=== PATIENT | male | born 1975 | race Caucasian/White ===

== ENCOUNTER 2023-06-25 14:11 | Outpatient (CLI) | payer MEDICAID, OTHER ==
[~2023-06-25 14:11] MED LIST: CLIN-214 PO
== END 2023-06-25 23:59 | disposition home or self-care (01) ==
LOC: RAD 14:11
PROVIDERS: ATTEND Physician Assistant
DX: F11.20 Opioid dependence, uncomplicated (principal)
CPT/HCPCS: 93005

== ENCOUNTER 2025-04-02 13:23 | Inpatient (IN) | payer MEDICAID, OTHER ==
[~2025-04-02] VITALS: Ht 180.3 cm; Wt 79.5 kg
[2025-04-02 13:53] LABS: MEAN PLATELET VOLUME 8.1 FL (7.4-10.4); RED CELL DISTRIBUTION WIDTH 15.0 % (11.5-14.5)
[2025-04-02 14:04] LABS: CREATININE 1.29 MG/DL (0.60-1.10); TOTAL CARBON DIOXIDE 25.8 MMOL/L (24-32); eCRCL 72 ML/MIN; eGFR 59 ML/MIN
[2025-04-02 14:07] LABS: LEUKOCYTE ESTERASE ,URINE NEGATIVE (Neg); NITRITES, URINE NEGATIVE (Neg); OCCULT BLOOD,URINE NEGATIVE (Neg)
[2025-04-02 14:08] LABS: UA COLLECTION TYPE CLN CATCH MIDSTREAM
--- NOTE | 2025-04-02 15:36 | Physician Documentation ---
History of Present Illness ~ Chief Complaint: Abdominal Pain w/vomiting Stated Complaint: MED CLEARANCE Time Seen by MD: 15:25 Source: patient Mode of Arrival: Police Exam Limitations: no limitations HPI 50-year-old male with chronic umbilical hernia for over a year is concerned that it is large and he require surgery. Patient states that he has had pain when standing up as well as difficulty with bowel movements because of the hernia. Patient also states that he vomits after every meal and just his last episode of emesis he had streaks of blood in his vomit. No fevers or other associated events. Medication Reconciliation Allergies: Coded Allergies: No Known Allergies (Unverified , 09/28/16) Scheduled Clindamycin HCl (Clindamycin HCl CAPSULE), 3 CAP PO TID Past Medical History Past Medical History: No Pertinent History Past Surgical History: no surgical history Drug Use: none Lives In: Home Occupation: employed Review of Systems All Other Systems at this time: Reviewed and Negative Gastrointestinal: Reports: see HPI Physical Exam Vital Signs: RN Vital Signs have been reviewed: Yes, Temperature: 99.1, Source: Oral, Heart Rate: 95, Respiratory Rate: 20, BP: 166/105, Pulse Oximetry: 98, Weight: 79.550 Oxygen Flow Rate: 0 General Appearance: alert, WD/WN, no apparent distress Neck: normal inspection Respiratory: lungs clear, normal breath sounds, no respiratory distress Chest: no accessory muscle use, chest non-tender Gastrointestinal: bowels sounds present, tenderness Gastrointestinal Large umbilical hernia soft and reducible, tender to the left lower quadrant Hernia: reducible hernia, hernia tender Extremities: normal range of motion Neurologic: oriented x4 Psychiatric: normal mood/affect Skin: normal color, warm/dry Progress Results/Orders Results/Orders Orders - CAROLYN WEI TRANSITION MGR RN Ct Abdomen Pelvis (04/02/25 15:29) Observation Status Start (04/02/25 15:37) Completed Orders - CAROLYN WEI TRANSITION MGR RN Ct Abdomen Pelvis (04/02/25 15:29) Normal Saline 1000ml (0.9% Sodium Chlori (04/02/25 15:40) Ketorolac Trometh 30mg/Ml Vial (Toradol (04/02/25 15:40) Ondansetron Inj. (Zofran 4mg/2ml Vial) (04/02/25 15:40) Medications Received in ER Medications (Trade) Dose Ordered Sig/Janice Route PRN Reason Start Time Stop Time Status Last Admin Dose Admin (0.9% sodium chloride (NS) 1000ml IV soln) 1,000 ml ONCE ONCE IVB 04/02/25 15:40 04/02/25 15:41 DC 04/02/25 16:02 1,000 ML (Toradol inj. 30mg/ml) 30 mg ONCE ONCE IV 04/02/25 15:40 04/02/25 15:41 DC 04/02/25 16:01 30 MG (Zofran 4mg/2ml vial) 4 mg ONCE ONCE IV 04/02/25 15:40 04/02/25 15:41 DC 04/02/25 16:01 4 MG Vital Signs 04/02/25 04/02/25 04/02/25 04/02/25 13:32 13:34 14:08 14:59 Temp 99.1 Pulse 114 96 95 Resp 16 16 18 20 B/P (MAP) 169/125 161/107 (125) 166/105 (125) Pulse Ox 99 98 98 O2 Flow Rate 0 0 0 04/02/25 04/02/25 16:05 17:26 Pulse 74 69 Resp 18 19 B/P (MAP) 160/109 (126) 170/109 (129) Pulse Ox 97 97 O2 Flow Rate 0 0 Laboratory Tests Test 04/02/25 13:43 04/02/25 13:57 White Blood Count 8.4 Red Blood Count 5.58 Hemoglobin 16.6 Hematocrit 48.3 Mean Corpuscular Volume 86.6 Mean Corpuscular Hemoglobin 29.8 Mean Corpuscular Hemoglobin Concent 34.4 Red Cell Distribution Width 15.0 H Platelet Count 164 Mean Platelet Volume 8.1 Neutrophils (%) (Auto) 69.3 Lymphocytes (%) (Auto) 22.5 Monocytes (%) (Auto) 6.0 Eosinophils (%) (Auto) 1.4 Basophils (%) (Auto) 0.8 Neutrophils # (Auto) 5.8 Lymphocytes # (Auto) 1.9 Monocytes # (Auto) 0.5 Eosinophils # (Auto) 0.1 Basophils # (Auto) 0.1 CBC Comment Sodium Level 137 Potassium Level 3.9 Chloride Level 102 Carbon Dioxide Level 25.8 Anion Gap 9 Blood Urea Nitrogen 18 Creatinine 1.29 H Estimated GFR/1.73 m2 59 BUN/Creatinine Ratio 14.0 Glucose Level 123 H Calcium Level 9.5 Total Bilirubin 0.5 Aspartate Amino Transf (AST/SGOT) 54 H Alanine Aminotransferase (ALT/SGPT) 138 H Alkaline Phosphatase 155 H Total Protein 8.1 Albumin 4.0 Globulin 4.1 Albumin/Globulin Ratio 1.0 L Lipase 89 H Chemistry Comments Urine Specimen Description Cln catch midstream Urine Color Yellow Urine Clarity Clear Urine pH 6.0 Urine Specific [place] 1.020 Urine Protein Negative Urine Glucose (UA) Negative Urine Ketones Negative Urine Occult Blood Negative Urine Nitrite Negative Urine Bilirubin Negative Urine Urobilinogen 0.2 Urine Leukocyte Esterase Negative Urine Culture Indicated Not ind Volume Urine Centrifuged 9 ml Urine Comment Low volume EKG/XRAY/CT/US/VASC/MRI CT : Impression Exam: CT CT ABDOMEN PELVIS History: Abdominal pain and umbilical hernia Comparison Study: None TECHNIQUE: Multidetector CT of the abdomen and pelvis without IV contrast. Axial, coronal and sagittal multiplanar reformats were obtained from the axial data set by the technologist. Radiation Dose Information: CT Dose: CTDI volume is 15.81 mGy. Dose-length product is 820.61 mGy*cm FINDINGS: Bibasilar atelectasis. Partially visualized heart is unremarkable. Hepatosplenomegaly with micronodular contour of the liver. Recanalization of the umbilical vein and upper abdominal varices. Focus of calcification adjacent to the liver. Gallbladder is decompressed with wall thickening and cholelithiasis. Pancreas and adrenal glands are unremarkable. Punctate nonobstructing bilateral renal calculi. No hydro nephrosis bilaterally. Bilateral ureters and urinary bladder unremarkable. Prostate is unremarkable. Hyperdense material within the stomach which most likely represents ingested material. Mild wall thickening proximal and mid small bowel loops. Moderate sized umbilical hernia containing a short segment of small bowel with fat stranding and small amount of fluid within the hernia. No evidence of bowel wall thickening. There is distention of the small bowel segment extending from the hernia up to 3.2 cm with associated mesenteric edema. Appendix is not definitely visualized. Without visualization of the appendix, can not exclude acute appendicitis. Small to moderate Amount of fecal material within the colon. No evidence of intraperitoneal free air or free fluid. No evidence of aortic aneurysm. Shotty mesenteric lymph nodes. Minimal body wall edema. Subcentimeter bilateral inguinal lymph nodes which are most likely reactive. No destructive osseous lesions noted. IMPRESSION: Moderate sized umbilical hernia containing a short segment of small bowel with fat stranding and small amount of free fluid. There is associated distal small bowel obstruction with mesenteric edema. Cirrhotic appearing liver with splenomegaly Cholelithiasis with wall thickening of the gallbladder which may be due to inadequate distention. Right upper quadrant ultrasound may be considered for further evaluation. Additional findings as above. Medical Decision Making Findings Umbilical hernia, incarcerated unknown if there has manipulation for being in [facility] that is going onto why he is complaining of his symptoms. Vitals are reassuring labs show elevated LFTs. Umbilical hernia for a year and soft reproducible no signs of incarceration. CT ordered for further evaluation CT shows possible bowel obstruction, a large amount of food in the stomach as well as some mesenteric edema Dr. Tony evaluated patient and will take him to surgery in the morning. NG tube as needed for nausea vomiting. Patient appears comfortable we will admit for surgery in the morning Departure Time of Disposition: 17:47 Disposition: 09 ADMITTED INPATIENT Impression: Primary Impression: Umbilical hernia with obstruction Additional Impressions: Nausea & vomiting Constipation Condition: Fair Referrals: NO PRIMARY CARE PROVIDER (PCP) Education Educated: Patient, Other Educated regarding: diagnosis, need for follow up Signature Scribe Signature: No scribe Attestation: The note accurately reflects work and decisions made by me.Carolyn Wei - SABRA 04/02/25 15:36 CAROLYN WEI NP Apr 02, 2025 15:36
[2025-04-02] MEDS: ketorolac trometh 30MG/ML vial 30 MG/ML VIAL IV ONE (16:01)
[2025-04-02] MEDS: ondansetron/PF 4mg/2ml inj IV ONE (16:01)
[2025-04-02] MEDS: normal saline 1000ML IV soln IVB ONE (16:02)
--- NOTE | 2025-04-02 17:13 | RADIOLOGY REPORT ---
Exam: CT CT ABDOMEN PELVIS History: Abdominal pain and umbilical hernia Comparison Study: None TECHNIQUE: Multidetector CT of the abdomen and pelvis without IV contrast. Axial, coronal and sagitta l multiplanar reformats were obtained from the axial data set by the technologist. Radiation Dose Information: CT Dose: CTDI volume is 15.81 mGy. Dose-length product is 820.61 mGy*cm FINDINGS: Bibasilar atelectasis. Partially visualized heart is unremarkable. Hepatosplenomegaly with micronodular contour of the liver. Recanalization of the umbilical vein and u pper abdominal varices. Focus of calcification adjacent to the liver. Gallbladder is decompressed with wall thickening and cholelithiasis. Pancreas and adrenal glands are unremarkable. Punctate nonobstructing bilateral renal calculi. No hydro nephrosis bilaterally. Bilateral ureters an d urinary bladder unremarkable. Prostate is unremarkable. Hyperdense material within the stomach which most likely represents ingested material. Mild wall thic kening proximal and mid small bowel loops. Moderate sized umbilical hernia containing a short segment of small bowel with fat stranding and sma ll amount of fluid within the hernia. No evidence of bowel wall thickening. There is distention of th e small bowel segment extending from the hernia up to 3.2 cm with associated mesenteric edema. Appen rhoda is not definitely visualized. Without visualization of the appendix, can not exclude acute append icitis. Small to moderate Amount of fecal material within the colon. No evidence of intraperitoneal free air or free fluid. No evidence of aortic aneurysm. Shotty mesenteric lymph nodes. Minimal body wall edema. Subcentimeter bilateral inguinal lymph nodes which are most likely reactive. No destructive osseous lesions noted. IMPRESSION: Moderate sized umbilical hernia containing a short segment of small bowel with fat stranding and smal l amount of free fluid. There is associated distal small bowel obstruction with mesenteric edema. Cirrhotic appearing liver with splenomegaly Cholelithiasis with wall thickening of the gallbladder which may be due to inadequate distention. Ri ght upper quadrant ultrasound may be considered for further evaluation. Additional findings as above.
[2025-04-02] MEDS ORDERED: magnesium sulf-water 4G/100mL 100 ML IV PRN (18:00)
[2025-04-02] MEDS ORDERED: potassium Cl 20 mEq SR tablet PO PRN ×2 (18:00)
[2025-04-02] MEDS ORDERED: bisacodyl 10mg suppository rectal RC PRN (18:00)
[2025-04-02] MEDS ORDERED: mag hydrox/Alum hydrox/simeth 30ml oral suspension PO PRN (18:00)
[2025-04-02] MEDS ORDERED: magnesium sulf-water 2g/50mL 50 ML IV PRN (18:00)
[2025-04-02] MEDS ORDERED: potassium Cl 40MEQ/1/2NS 520ml 520 ML IV PRN (18:00)
[2025-04-02] MEDS ORDERED: magnesium hydroxide 30ml (MOM) UD suspension PO PRN (18:00)
[2025-04-02] MEDS ORDERED: HYDROmorphone/PF 0.2 MG/ML SYRINGE IV PRN (18:00)
[2025-04-02] MEDS: hydrALAZINE 20mg/ml inj. IV PRN (18:28)
[2025-04-02] MEDS: normal saline 1000ml 1,000 ML IV SCH (18:28)
[2025-04-02] MEDS: HYDROmorphone inj. 0.5 MG/0.5 ML DISP.SYRIN IV PRN (18:29)
[2025-04-02] MEDS ORDERED: NO HOME MEDS (18:49)
[2025-04-02] MEDS: K and/or MAG REPLACEMENT MC SCH (20:14)
[2025-04-02] MEDS: ondansetron/PF 4mg/2ml inj IV PRN (20:30)
--- NOTE | 2025-04-02 20:54 | HISTORY AND PHYSICAL ---
History & Physical Providers to CC ~ History of Present Illness Reason for Admit\Complaint: Small-bowel obstruction secondary to unbilical hernia History of Present Illness This is a 50-year-old male who has a history of umbilical hernia for greater than one year. The patient has not noticed over the past three days increasing abdominal pain around his umbilicus as well as diarrhea and nausea and vomiting. He denies a fever chills. The patient is unable to keep food down. CT scan of the abdomen and pelvis demonstrated a moderate size umbilical hernia containing a short segment of small-bowel with fat stranding and small amount of free fluid with a distal small-bowel obstruction. The patient abdomen is soft on exam and the patient had some mild tenderness on exam. The patient is evaluated by Dr. Tony surgeon who we will be taking the patient tomorrow for umbilical hernia repair. 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 Full code status ROS ROS Except for positives in the HPI the rest of the 14 point review systems is negative Exam Vitals: Vital Signs Date Time Temp Pulse Resp B/P (MAP) Pulse Ox O2 Delivery O2 Flow Rate FiO2 04/02/25 20:34 77 16 140/98 (112) 98 0 04/02/25 13:32 99.1 General: Gen. No acute distress alert and oriented 4 Lungs clear to ascultation bilaterally, no wheezes rales or rhonchi appreciated Heart normal sinus rhythm no murmurs rubs or clicks noted Abdomen soft mild generalized tenderness umbilical hernia is present an with outpouching bowel sounds are normoactive Lower extremities no clubbing cyanosis, nor edema appreciated bilaterally Diagnostic Data Last Recorded Lab Results: 04/02/25 1343 04/02/25 1343 Advance Care Planning Advanced Care plannin - 30 Minutes Problems: (1) Umbilical hernia with obstruction Status: Acute Additional Plan # umbilical hernia with secondary distal small-bowel obstruction- Evaluated by general surgeon Dr. Tony- surgery in the a.m. # kidney disease Eval for chronic kidney disease versus DARRELL Daily metabolic panel is ordered # transaminitis Monitor daily labs # tobacco use disorder 7 mg nicotine patch is ordered I will discuss smoking cessation with the patient tomorrow. # DVT prophylaxis SCDs I spent a total of 16 minutes on reviewing various resuscitative measures/ ACP with the patient at the time of admission. The patient has decided on full code status. Date of Service: Apr 02, 2025 Billing Provider: OLIVIA HAMMOND DO Common Visit Codes: 15535-[id number] INP/OBS CARE (MOD) Secondary Visit Codes: [id number] CARE PLAN 30 MINUTES OLIVIA HAMMOND DO Apr 02, 2025 20:54
--- NOTE | 2025-04-02 21:00 | Visit Coding Note ---
Date of Service: Apr 02, 2025 Billing Provider: OLIVIA HAMMOND DO Common Visit Codes: [id number] INP/OBS CARE (HIGH) Secondary Visit Codes: [id number] CARE PLAN 30 MINUTES OLIVIA HAMMOND DO Apr 02, 2025 21:00
[2025-04-02 22:03] VITALS: BP 153/98; PULSE 77; RESP 18; TEMP 97.8; O2SAT 98
[2025-04-02 23:00] VITALS: RESP 18; O2SAT 98
[2025-04-03] VITALS (16 sets, daily range): BP systolic 120–163; BP diastolic 79–98; PULSE 68–87; RESP 12–20; TEMP 97.3–98.6; O2SAT 93–100
[2025-04-03 07:37] LABS: MEAN PLATELET VOLUME 8.9 FL (7.4-10.4); RED CELL DISTRIBUTION WIDTH 14.8 % (11.5-14.5)
[2025-04-03 07:53] LABS: APTT 27 SECONDS (22-32); INR 1.2 INR
[2025-04-03 08:04] LABS: CREATININE 0.85 MG/DL (0.60-1.10); TOTAL CARBON DIOXIDE 24.9 MMOL/L (24-32); eCRCL 110 ML/MIN; eGFR > 90 ML/MIN
--- NOTE | 2025-04-03 09:25 | CONSULTATION REPORT ---
History of Present Illness Providers to CC CC: VIRGINIA BREWER MD ~ Reason for Admit\Admit Dx: Small-bowel obstruction secondary to unbilical hernia History of Present Illness Locally incarcerated patient presents to the emergency room with diffuse abdominal pain, nausea and vomiting. On exam, he was noted to have some left lower quadrant abdominal pain, however, CT scan was concerning for incarcerated umbilical hernia with possible transition point related to distal small bowel obstruction. I was called for consultation. Patient states he has had off and on nausea and vomiting with periumbilical pain for about a month. Over the last 2-4 days, he states he has had nausea and vomiting and had streaks of blood in some of his bilious emesis. CT scan did show a distended stomach, however, the loop of small intestine at the umbilicus does not appear to be a transition point in my opinion. Patient denies any periumbilical erythematous changes or active significant pain. Denies any history of abdominal surgery States he has had an umbilical hernia for 1-2 years and it has gradually increased in size and symptoms Allergies: Coded Allergies: No Known Allergies (Unverified , 09/28/16) Home Medications Home Medications Active Reported No Home Medications (Home Med List) Each Past Medical History Medical History Comment Denies Past Surgical History Surgical History Comment Left shoulder surgery Past Family History Family History Comment Noncontributory Family History: FH: CABG (coronary artery bypass surgery) Maternal grandfather Past Social History Social History Comment Daily smoker of tobacco History of heroin use No active alcohol, however, questionable history of alcoholism Currently incarcerated Physical Exam Last Vital Signs Recorded: RN Vital Signs have been reviewed: Yes, Temperature: 97.8, Source: Temporal, Heart Rate: 77, Respiratory Rate: 14, BP: 153/98, Pulse Oximetry: 98, Weight: 79.550 General Appearance: alert, WD/WN, no apparent distress EENT: PERRL/EOMI; No: scleral icterus (R), scleral icterus (L) Neck: normal inspection, supple Respiratory: lungs clear Chest: no accessory muscle use, chest non-tender Gastrointestinal Abdomen softly distended There was an obvious umbilical hernia that is quite large Defect feels to be about 2-3 cm in diameter There was some stool within the bowel in the hernia sac, however I am able to reduce the majority of this Quite tender with no overlying skin changes Rectal: deferred Back: normal inspection, no CVA tenderness Extremities: normal range of motion, no edema Neurologic: oriented x4 Psychiatric: normal mood/affect; No: anxiety Skin: normal color Lymphatic: no adenopathy Review of Systems ROS ROS Comments: Reviewed and negative with the exception of those found in the history of present illness Results Results/Orders Results/Orders I reviewed the CT scan There appears to be some hard stool in the rectosigmoid consistent with constipation Stomach is quite distended despite the patient reporting multiple episodes of nausea and vomiting It is quite possible that the patient may have some level of gastric outlet obstruction related to ulcer disease or even gastroparesis which would be a much less likely diagnosis Diagram Lab Result Diagram: 04/03/25 0555 04/03/25 0555 Assessment/Plan Problems/Diagnosis: (1) Umbilical hernia with obstruction Assessment & Plan: Patient's clinical exam does not clearly coincide with the CT scan I do not see an obstruction at the level of the hernia, however, there is some component of incarceration and it is quite symptomatic Patient has other findings on the CT scan that could be contributing to his nausea and vomiting (constipation and possible gastric component (gastric outlet obstruction versus gastroparesis)) Regardless, patient does have a surgical condition that seems to be progressively worsening The risks, benefits, and alternatives to a robotic assisted, laparoscopic, possible open incarcerated umbilical hernia repair with possible mesh were discussed with the patient. Risks include, but are not limited to, bleeding, infection, injury to intra-abdominal structures, hernia recurrence and chronic postoperative pain. It is also possible that this will not resolve his symptoms warranting further workup. Patient verbalized understanding and wishes to proceed with surgery. We will do so today VIRGINIA BREWER MD Apr 03, 2025 09:25
[2025-04-03] MEDS ORDERED: meperidine/PF 25mg/ml syringe IV PRN ×3 (11:00)
[2025-04-03] MEDS ORDERED: labetalol 20mg/4ml (5mg/ml) syringe IV PRN (11:00)
[2025-04-03] MEDS ORDERED: ondansetron/PF 4mg/2ml inj IV PRN (11:00)
[2025-04-03] MEDS ORDERED: enalaprilat 1.25mg/ml 2ml vial IV PRN (11:00)
[2025-04-03] MEDS: ringers solution, lacted 1,000 ML IV SCH (11:00)
[2025-04-03] MEDS ORDERED: morphine 4 MG/ML inj SYRINge IV PRN (11:00)
[2025-04-03] MEDS ORDERED: LIDOcaine 2% (20mg/ml) 5ml vial ONE (12:21)
[2025-04-03] MEDS ORDERED: propofol inj 20 ML IV ONE (12:21)
[2025-04-03] MEDS ORDERED: BUPIVAcaine/PF 5 mg/ml 10ml ONE (12:31)
[2025-04-03] MEDS ORDERED: BUPIVAcaine 2.5mg/ml inj 50ml vial (contains preservative) ONE (12:31)
[2025-04-03] MEDS ORDERED: BUPIVACAINE liposomal/PF 13.3 MG/ML 10mL vial IM ONE (12:32)
[2025-04-03] MEDS ORDERED: LIDOcaine 1% 30ml preserv. free vial ONE (12:32)
[2025-04-03] MEDS ORDERED: midazolam 1 mg/ML 2ml injection ONE (12:59)
[2025-04-03] MEDS ORDERED: fentaNYL /PF 50mcg/ml 5ml ampule ONE (12:59)
[2025-04-03] MEDS ORDERED: rocuronium 10mg/ml inj IV ONE (13:01)
[2025-04-03] MEDS: ceFAZolin 2gm/dext,iso 50mL 50 ML IV ONE (13:15)
[2025-04-03] MEDS ORDERED: oxyCODONE/APAP 5-325mg tablet PO PRN (14:20)
--- NOTE | 2025-04-03 14:35 | OPERATIVE REPORT ---
Operative Report Providers to CC CC: KANU BREWER MD ~ Date of Procedure: Apr 03, 2025 Pre-Operative Diagnosis: Incarcerated umbilical hernia with secondary small- bowel obstruction Post-Operative Diagnosis 3 cm umbilical hernia Procedure Performed Robotic assisted, laparoscopic 3 cm umbilical hernia repair with mesh Bilateral transversus abdominis plane nerve blocks by injection using 266 mg of Exparel Surgeon: Kanu Brewer MD FACS Power Switchboard Operator None Anesthesiologist: Mahesh Rowan Type of Anesthesia: General Findings: 3 cm fascial defect with a very large associated hernia sac and inflammatory changes consistent with evidence of previous/recent incarcerated state Wound class I Complications None Prosthetics\Implants used: 12 cm diameter coated polyester mesh Estimated Blood Loss: Minimal Specimen Removed: None Description of Procedure: Patient was brought to the operating room and identified by the nursing staff and the attending physician. Patient was placed supine and a general anesthesia was induced. Preoperative antibiotics were given. The abdomen was prepped and draped in the standard sterile fashion. Through a left subcostal stab incision the abdomen was accessed with a Veress needle technique. Abdomen was insufflated without incident. The incision was lengthened to accommodate a 12 mm optical trocar and the abdomen was entered under laparoscopic visualization. The abdomen was surveyed laparoscopically. There was a moderate-sized and obvious fascial defect at the level of the umbilicus. There was some omentum herniated up and adherent to the hernia sac. No bowel was involved. There were some inflammatory changes with localized peritonitis near the hernia opening consistent with a recent incarcerated status. No gross abnormalities were noted with regards to the visible small bowel or large bowel. Under laparoscopic visualization, robotic trochars were placed in the left lateral and left lower quadrant. The da Ally robotic arm was docked to the patient and instruments guided intra-abdominally under laparoscopic visualization. Two adhesive bands between omentum and the hernia defect and hernia sac were mobilized, divided and reduced. Fascial edges were freshened. The defect measured 3-4 cm in diameter. Fascial defect(s) were then reapproximated with running, absorbable, 0V lock suture. Good fascial apposition was obtained without significant tension. Bites of the hernia sac were included to decrease the amount of space in the very large hernia sac. A coated polyester mesh was then fixed to the anterior abdominal wall with running, absorbable, 2/0, V lock suture. Mesh laid without wrinkles or folds. The mesh measured 12 cm in diameter The da Ally instruments were then removed and the robot undocked from the patient. Bilateral transversus abdominis plane nerve blocks by injection were then placed under laparoscopic visualization using a combination of Marcaine and 266 mg of Exparel. The left subcostal trocar was removed and its fascia closed percutaneously with 0 Vicryl suture under laparoscopic visualization. Remaining trochars were removed after the abdomen was allowed to deflate. Skin was closed at all sites with 4-0 Monocryl sutures and dressed with sterile dressings. Patient was awakened and taken to the postanesthesia care unit in stable condition. Counts repoted as correct: Yes KANU BREWER MD Apr 03, 2025 14:35
[2025-04-03] MEDS: oxyCODONE/APAP 5-325mg tablet PO PRN (15:18)
[2025-04-03] MEDS: nicotine 7mg patch - 24hr TD SCH (15:24)
[2025-04-03] MEDS: BUPIVAcaine/PF 2.5 mg/ml (0.25%) 30ml vial IJ ONE (17:46)
--- NOTE | 2025-04-03 20:38 | PROGRESS NOTE ---
Daily Progress Note Providers to CC ~ Antibiotic Timeout Antibiotic Ordered?: No Subjective The patient is status post umbilical hernia repair today with Dr. Tony in his tolerating clear liquid diet without any symptoms including no nausea and states that has the abdominal pain is significantly improved since surgery he just has some soreness of the surgical site in his very pleased so far with the results, the patient states he has passed flatus as well. Objective Vital Signs Date Time Temp Pulse Resp B/P (MAP) Pulse Ox O2 Delivery O2 Flow Rate FiO2 04/03/25 19:16 16 04/03/25 18:00 98.2 87 133/79 (97) 97 Room Air 04/03/25 15:00 0.0 Result Diagram: 04/03/2555 04/03/25 0555 Gen. No acute distress alert and oriented 4 Lungs clear to ascultation bilaterally, no wheezes rales or rhonchi appreciated Heart normal sinus rhythm no murmurs rubs or clicks noted Abdomen abdominal binder is present, bowel sounds are hypoactive Lower extremities no clubbing cyanosis, nor edema appreciated bilaterally Coagulation Studies Laboratory Tests Test 04/03/25 05:55 Prothrombin Time 11.9 SECONDS (9.0-12.0) INR International Normalized Ratio 1.2 INR Activated Partial Thromboplast Time 27 SECONDS (22-32) Coagulation Comments Problem\Assessment\Plan Problems/Diagnosis: (1) Umbilical hernia with obstruction Additional Plan # umbilical hernia with secondary distal small-bowel obstruction- Status post: Robotic assisted, laparoscopic 3 cm umbilical hernia repair with mesh Bilateral transversus abdominis plane nerve blocks by injection using [address] Tony on the morning of 04/03/2025 # DARRELL possibly secondary to renal tubular stasis Resolved with IV fluid resuscitation # transaminitis Monitor daily labs # tobacco use disorder 7 mg nicotine patch is ordered I will discuss smoking cessation with the patient tomorrow. # DVT prophylaxis SCDs Date of Service: Apr 03, 2025 Billing Provider: OLIVIA HAMMOND DO Common Visit Codes: [id number] INP/OBS CARE(MOD) OLIVIA HAMMOND DO Apr 03, 2025 20:38
[2025-04-04 02:05] VITALS: BP 166/107; PULSE 80; RESP 16; TEMP 97.7; O2SAT 99
[2025-04-04 02:16] VITALS: BP 152/78
--- NOTE | 2025-04-04 05:40 | ELECTROCARDIOGRAPH REPORT ---
[facility] Test Date: 2025-04-03 Test Time: 10:56:49 Pat Name: LIDA MARISCAL Department: ORTHO/NEURO Room: ORTHO [facility] Gender: M Grazing Aide: : 1975 Requested By: VIRGINIA BREWER Order Number: [id number] Reading MD: Dr. PRADIP Diamond Measurements Intervals [place] Rate: 65 P: 66 IN: 140 QRS: 55 QRSD: 101 T: 41 QT: 422 QTc: 439 Interpretive Statements Sinus rhythm Electronically Signed On 04-04-2025 18:19:[address] PRADIP Diamond Please click the below link to view image of tracing.
[2025-04-04 06:00] VITALS: BP 155/99; PULSE 79; RESP 18; TEMP 97.4; O2SAT 98
[2025-04-04] MEDS: magnesium hydroxide 30ml (MOM) UD suspension PO ONE (06:45)
[2025-04-04 10:00] VITALS: BP 142/94; PULSE 78; RESP 18; TEMP 98.3; O2SAT 97
[2025-04-04 10:04] LABS: MEAN PLATELET VOLUME 8.2 FL (7.4-10.4); RED CELL DISTRIBUTION WIDTH 14.6 % (11.5-14.5)
[2025-04-04 10:31] LABS: CREATININE 1.01 MG/DL (0.60-1.10); TOTAL CARBON DIOXIDE 28.0 MMOL/L (24-32); eCRCL 92 ML/MIN; eGFR 78 ML/MIN
[2025-04-04] MEDS ORDERED: NICO-630 TD (11:10)
[2025-04-04] MEDS ORDERED: AMLO5TAB16 PO (11:10)
[2025-04-04] MEDS ORDERED: OXYC1TAB17 PO (11:10)
--- NOTE | 2025-04-04 20:02 | DISCHARGE SUMMARY ---
Discharge Summary Providers to CC ~ Discharge Summary Admission Diagnosis: Incarcerated umbilical hernia with secondary small-bowel obstruction Hospital Course DATE OF ADMISSION: 04/02/2025 DATE OF DISCHARGE: 04/04/2025 Discharge Diagnosis\Comment: Umbilical hernia was secondary to distal small-bowel obstruction, DARRELL, transaminitis, tobacco use disorder Operations\Procedures: Robotic assisted, laparoscopic 3 cm umbilical hernia repair with mesh Bilateral transversus abdominis plane nerve blocks by injection using 266 mg of Exparel Consultants: Dr. Kanu Tony MD general surgeon Complications: None Condition on DC: Stable New Medications: Amlodipine Besylate (Amlodipine Besylate) 5 Mg Tablet 1 TAB PO DAILY for 30 Days, #30 TAB 0 Refills Oxycodone Hcl/Acetaminophen (Oxycodone-Acetaminophen 10-325) 10 Mg-325 Mg Tablet 1 TAB PO Q6H PRN for severe pain (7-10), #20 TAB Nicotine 7 MG Patch* (Habitrol 7 MG Patch*) 1 Each Patch.td24 1 PATCH TD DAILY, #28 PATCH Do not smoke while on a nicotine patch as this could markedly elevate your blood pressure and you could have a stroke. Discontinued Medications: Home Med List (No Home Medications) Each Discharge Summary: I admitted the patient with the following HPI:This is a 50-year-old male who has a history of umbilical hernia for greater than one year. The patient has not noticed over the past three days increasing abdominal pain around his umbilicus as well as diarrhea and nausea and vomiting. He denies a fever chills. The patient is unable to keep food down. CT scan of the abdomen and pelvis demonstrated a moderate size umbilical hernia containing a short segment of small-bowel with fat stranding and small amount of free fluid with a distal small-bowel obstruction. The patient abdomen is soft on exam and the patient had some mild tenderness on exam. The patient is evaluated by Dr. Tony surgeon who we will be taking the patient tomorrow for umbilical hernia repair. It was discovered that the patient had a incarcerated umbilical hernia with secondary small-bowel obstruction and Dr. Tony discovered that there was a 3 cm fascial defect was very large associated hernia sac and inflammatory changes. The patient has a robotic assisted laparoscopic 3 cm umbilical hernia repair with mesh. The patient had unremarkable postop course was using Percocet approximately every 4 hours Was discharged with 20 tablets of Percocet 10/325 for severe pain. The patient is to follow up with Dr. Tony in two weeks The patient did have elevated blood pressure unlikely has hypertension was started amlodipine the patient's blood pressure at times was in the 140s to 160s over 70s to 100s The patient was discharged with a nicotine patch as well 7 mg and advised not to smoke while on a nicotine patch because this can cause a stroke Gen. No acute distress alert and oriented 4 Lungs clear to ascultation bilaterally, no wheezes rales or rhonchi appreciated Heart normal sinus rhythm no murmurs rubs or clicks noted Abdomen mildly distended mild generalized tenderness bowel sounds were slightly hypoactive Lower extremities no clubbing cyanosis, nor edema appreciated bilaterally The patient felt ready to be discharged and was medically cleared to be discharged on 04/04/2025 The patient was seen and evaluated on day of discharge. Time spent on discharge 35 minutes *Problems/Diagnosis: (1) Umbilical hernia with obstruction Status: Acute Total Time Spent on D/C: > 30 Minutes Date of Service: Apr 04, 2025 Billing Provider: OLIVIA HAMMOND DO Common Visit Codes: 67532-JWH/OBS DISCH DAY >30min OLIVIA HAMMOND DO Apr 04, 2025 20:02
== END 2025-04-04 13:44 | DRG 353 ==
LOC: EEVIPCON 13:23 → ER 13:23 → ED HOLD 18:13 → ORTHO 4S 22:04
PROVIDERS: ADMIT Family Medicine; ATTEND Family Medicine
PROC: 8E0W4CZ Robotic Assisted Procedure of Trunk Region, Percutaneous Endoscopic Approach (ICD-10-PCS; 2025-04-03)
PROC: 3E0T3BZ Introduction of Anesthetic Agent into Peripheral Nerves and Plexi, Percutaneous Approach (ICD-10-PCS; 2025-04-03)
PROC: 0WUF4JZ Supplement Abdominal Wall with Synthetic Substitute, Percutaneous Endoscopic Approach (ICD-10-PCS; principal; 2025-04-03 12:52)
DX: K42.0 Umbilical hernia with obstruction, without gangrene (principal); K65.9 Peritonitis, unspecified; F17.200 Nicotine dependence, unspecified, uncomplicated; K66.0 Peritoneal adhesions (postprocedural) (postinfection); K59.00 Constipation, unspecified; F17.210 Nicotine dependence, cigarettes, uncomplicated; R74.01 Elevation of levels of liver transaminase levels; Z86.79 Personal history of other diseases of the circulatory system
CPT/HCPCS: 96361; 96374; 96375; 99285; Z7506; Z7508; 36415; 74176; 80053; 81003; 82948; 83690; 83735; 85025; 85610; 85730; 87081; 93005; A4215; A4618; A7000; C1781; G0378; J0360; J0665; J0666; J1171; J1885; J2003; J2250; J2405; J2704; J3010; J3490; J7030; J7120